=== PATIENT | female | born 1990 | race American Indian/Alaskan Native ===

== ENCOUNTER 2019-05-07 00:31 | Emergency (ER) | payer MEDICAID ==
[2019-05-07] MEDS ORDERED: TETANUS,DIPH,PERTUSS(ACELL) VACCINE 0.5 ML SYRINGE IM ONE (01:58)
[2019-05-07] MEDS ORDERED: HYDROcodone/ACETAMINOPHEN 5-325 MG TAB PO ONE (01:58)
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
[2019-05-07] MEDS ORDERED: ONDANSETRON 4 MG ODT TAB ONE (02:42)
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
[2019-05-07 05:17] VITALS: BP 121/68
== END 2019-05-07 05:00 | disposition home or self-care (01) ==
LOC: ED 00:31
DX: S83.422A Sprain of lateral collateral ligament of left knee, initial encounter (principal); S63.501A Unspecified sprain of right wrist, initial encounter; S60.511A Abrasion of right hand, initial encounter; F17.200 Nicotine dependence, unspecified, uncomplicated; Z98.890 Other specified postprocedural states; Z79.899 Other long term (current) drug therapy; Y04.0XXA Assault by unarmed brawl or fight, initial encounter; Y93.89 Activity, other specified; Y92.89 Other specified places as the place of occurrence of the external cause; Y99.8 Other external cause status
CPT/HCPCS: 70110; 90471; 90715; Q0162